=== PATIENT | male | born 1970 | race Caucasian/White ===

== ENCOUNTER 2016-06-07 05:22 | Emergency (ER) | payer OTHER ==
[2016-06-07 06:14] LABS: BASOPHIL % 0.4 % (0-2); PLATELET COUNT 258 x10^3mcL (130-400); RED CELL DISTRIBUTION WIDTH 13.1 % (11.5-14.5)
[2016-06-07 06:23] LABS: ALBUMIN 4.2 g/dL (3.4-5.0); BILIRUBIN TOTAL 0.89 mg/dL (0.20-1.00); CALCIUM 9.4 mg/dL (8.5-10.1); CARBON DIOXIDE 19.1 mmol/L (21-32); CREATININE SERUM 1.4 mg/dL (0.7-1.3); TOTAL PROTEIN, SERUM 7.7 g/dL (6.4-8.2)
[2016-06-07 06:27] LABS: POTASSIUM SERUM 2.9 mmol/L (3.5-5.1)
[2016-06-07 06:48] LABS: CK-MB 6.1 ng/mL (0-3.6)
[2016-06-07 07:00] LABS: MAGNESIUM 1.7 mg/dL (1.8-2.4)
[2016-06-07 07:07] LABS: UA SPECIFIC GRAVITY <=1.005 (1.005-1.035); microscopic required? YES; urine erythrocyte TRACE (NEGATIVE)
[2016-06-07 07:26] LABS: AMPHETAMINE QUAL UR NONE DETECTED (NEG <=1000)
[2016-06-07 08:52] VITALS: BP 165/78
== END 2016-06-07 08:52 | disposition other institution (70) ==
LOC: ED 05:22
PROVIDERS: Emergency Medicine
DX: F19.921 Other psychoactive substance use, unspecified with intoxication with delirium (principal); E87.6 Hypokalemia; N18.3 Chronic kidney disease, stage 3 (moderate); F12.229 Cannabis dependence with intoxication, unspecified
CPT/HCPCS: 80307; G0480; J1630; J3480; J7030

== ENCOUNTER → 2016-06-07 | Emergency (ER) | payer OTHER | LOC: ED 05:22 → RD 05:22 → ED 05:22 → LB 05:22 → ED 15:22 → EDSTATUS 15:48 | DX: Z02.89 Encounter for other administrative examinations (principal) ==